=== PATIENT | male | born 1945 | race Caucasian/White ===

== ENCOUNTER 2016-12-21 15:17 | Inpatient (IN) | payer OTHER, MEDICARE ==
[~2016-12-21] VITALS: Ht 175.3 cm; Wt 102.4 kg
[2016-12-21 16:31] VITALS: BP 139/57
[2016-12-21] MEDS ORDERED: CARDIZEM 90 MG90 MG PO (16:39)
[2016-12-21] MEDS ORDERED: PEPCID AC20 MG PO (16:40)
[2016-12-21] MEDS ORDERED: GLIMEPIRIDE4 MG PO (16:41)
[2016-12-21] MEDS ORDERED: MS CONTIN30 MG PO (16:43)
[2016-12-21] MEDS ORDERED: HYDROCODONE-APA1 TAB PO (16:45)
[2016-12-21] MEDS ORDERED: PROZAC40 MG PO (16:46)
[2016-12-21] MEDS ORDERED: NEURONTIN800 MG PO (16:47)
[2016-12-21] MEDS ORDERED: DESERYL100 MG PO (16:48)
[2016-12-21] MEDS ORDERED: LIPITOR40 MG PO (16:48)
[2016-12-21] MEDS ORDERED: HYDRALAZINE HCL25 MG PO (16:50)
[2016-12-21] MEDS ORDERED: COREG25 MG PO (16:50)
[2016-12-21] MEDS ORDERED: LEVAQUIN250 MG PO (16:52)
[2016-12-21] MEDS ORDERED: ZESTRIL20 MG PO (16:55)
[2016-12-21] MEDS ORDERED: JANUVIA25 MG PO (16:56)
[2016-12-21] MEDS ORDERED: BAYER CHEWABLE81 MG PO (16:57)
[2016-12-21] MEDS ORDERED: SYMBICORT 16010.2 GM INH (16:58)
[2016-12-21] MEDS ORDERED: NITROMIST8.5 GM SL (17:01)
[2016-12-21] MEDS ORDERED: RESTORIL15 MG PO (17:01)
[2016-12-21] MEDS ORDERED: PROVENTIL HFA6.7 GM INH (17:02)
--- NOTE | 2016-12-21 19:00 | NUR ---
PATIENT IN BED, AT BEDSIDE. TOLD HIM I WILL RETURN TO SEE HIM AFTER RECEIVING SHIFT REPORT.
--- NOTE | 2016-12-21 19:19 | NUR ---
RESTING QUIETLY IN BED. CALL LIGHT IN REACH
[2016-12-21 20:07] VITALS: BP 139/57
--- NOTE | 2016-12-21 20:10 | NUR ---
ASSESSMENT COMPLETE. PATIENT SIGNED ADMISSION DOCUMENTS. TOLD HIM I PUSHPA RETURN LATER WITH HIS SCHEDULED BEDTIME MEDS. GAVE HIM 240ML CHOCOLATE ENSURE HE ATE ONLY 10% OF HIS DINNER.
--- NOTE | 2016-12-21 21:50 | NUR ---
HS MEDS GIVEN TO PATIENT. FSBS 199. PATIENT DOES NOT HAVE SLIDING SCALE ORDERS. C/O PAIN LEVEL OF 7/10 IN BILAT LE'S DUE TO NEUROPATHY. RECEIVED SCHEDULED MS CONTIN AND NORCO PO.
--- NOTE | 2016-12-22 00:10 | NUR ---
RESTING IN BED ON LEFT SIDE, EYES CLOSED. APPEARS COMFORTABLE.
--- NOTE | 2016-12-22 01:50 | NUR ---
PATIENT AWAKE. EMPTIED 250ML YELLOW URINE FROM BEDSIDE URINAL. DENIES FURTHER NEEDS.
--- NOTE | 2016-12-22 04:15 | NUR ---
IN BED, EYES CLOSED. RESPIRATIONS UNLABORED.
--- NOTE | 2016-12-22 06:15 | NUR ---
FSBS 176. PATIENT DENIES CURRENT NEEDS. REPOSITIONED HIM HIGHER UP IN BED FOR COMFORT.
[2016-12-22 07:10] LABS: INR 1.13 (0.85-1.17); PROTIME 14.4 SECONDS (11.6-15.0)
--- NOTE | 2016-12-22 07:37 | NUR ---
SITTING UP IN BED EATING BREAKFAST. DENIES ANY NEEDS. ALERT AND ORIENTED X3. CALL LIGHT IN REACH. WILL CONTINUE TO MONITOR.
[2016-12-22 08:50] VITALS: BP 136/55
--- NOTE | 2016-12-22 09:45 | NUR ---
IN GYM WITH OCCUPATIONAL THERAPY. TOLERATING WELL.
--- NOTE | 2016-12-22 15:27 | NUR ---
SITTING UP IN BED WATCHING TV, NAD NOTED. DENIES ANY NEEDS OR PAIN AT THIS TIME. CALL LIGHT IN REACH. WILL CONTINUE TO MONITOR
--- NOTE | 2016-12-22 17:35 | NUR ---
SITTING UP IN BED EATING DINNER AND VISITING WITH ROOMMATE. CALL LIGHT IN REACH. WILL CONTINUE TO MONITOR.
--- NOTE | 2016-12-22 19:00 | NUR ---
SITTING UP ON RIGHT SIDE OF BED. DENIES NEEDS.
--- NOTE | 2016-12-22 20:35 | NUR ---
IN BED, DOZING. PREPARING TO LEAVE FOR HOME. EXPRESSED SHE WANTS PATIENT TO HAVE PRN RESTORIL TONIGHT.
[2016-12-22 22:10] VITALS: BP 106/79
--- NOTE | 2016-12-22 22:10 | NUR ---
TOOK ALMOST 5 MINUTES OF SHAKING PATIENT'S SHOULDER AND CALLING HIS NAME UNTIL HE WAS FINALLY ABLE TO KEEP HIS EYES OPEN AND BECOME AWARE OF HIS SURROUNDINGS. ASSESSMENT AND VS THEN COMPLETED. FSBS 64. GAVE PATIENT 8 OZS ORANGE JUICE AND 3 DA SQUARES. PATIENT HAS BEEN EATING POORLY SINCE ADMISSION YESTERDAY AND DAY SHIFT REPORTED A BLOOD SUGAR OF 65 @ 1630. WILL NOT EAT MORE THEN THE CRACKERS PROVIDED AND HAD TO BE REPEATEDLY CUED TO DRINK ALL OF THE JUICE AND EAT HIS DA CRACKERS. HS IS ORIENTED X4. AND IS NOW FULLY AWAKE AND ALERT.
--- NOTE | 2016-12-23 00:35 | NUR ---
RESTING IN BED, EYES CLOSED. HOB UP 45 DEGREES. NO APPARENT DISTRESS.
--- NOTE | 2016-12-23 01:00 | NUR ---
PATIENT LETHARGIC AND DIFFICULT TO AWAKEN. FSBS 81. WILL RECHECK AT 0300 AND TREAT NECESSARY AT THAT TIME.
--- NOTE | 2016-12-23 02:10 | NUR ---
RESTING QUIETLY IN BED, EYES CLOSED.
--- NOTE | 2016-12-23 03:46 | NUR ---
RECHECK BLOOD SUGAR IS 60. PATIENT MORE RESPONSIVE TO TOUCH, BUT STILL NOT AROUSABLE ENOUGH TO EAT A SNACK WITHOUT CONSTANT CUEING AND SUPERVISION TO KEEP HIM ON TASK. GAVE PATIENT GLUCAGON 1MG IM IN RIGHT DELTOID.
--- NOTE | 2016-12-23 06:00 | NUR ---
PATIENT AWAKENED EASILY. FSBS NOW 124. DENIES NEEDS. STILL SLEEPY, BUT NOT LETHARGIC.
[2016-12-23 06:55] LABS: BASOPHILS 0.1 % (0-2); HEMATOCRIT 32.9 % (42.0-54.0); HEMOGLOBIN 10.5 g/dL (13.5-17.5); IMMATURE GRANULOCYTES 0.7 % (0-5); MCH 29.5 pg (26.0-34.0); MCHC 31.9 g/dL (31.0-37.0); MCV 92.4 fL (80.0-100.0); MEAN PLATELET VOLUME 9.7 fL (7.4-10.4); MONOCYTES 8.3 % (2-11); NEUTROPHILS 81.9 % (40-80); PLATELET COUNT 276 10x3/uL (130-400); RBC 3.56 10x6/uL (4.20-6.10); WBC 16.7 10x3/uL (4.8-10.8)
[2016-12-23 06:56] LABS: ANION GAP 10.8 mmol/L (8-16); CALCIUM 8.3 mg/dL (8.5-10.1); CARBON DIOXIDE 27.2 mmol/L (21.0-32.0)
--- NOTE | 2016-12-23 08:00 | NUR ---
SHIFT ASSMT COMPLETED.CL IN REACH.
[2016-12-23 08:09] VITALS: BP 93/46
[2016-12-23 10:27] VITALS: Ht 175.3 cm; Wt 102.4 kg
--- NOTE | 2016-12-23 12:00 | NUR ---
EATING LUNCH.DENIES NEEDS.
[2016-12-23 19:00] VITALS: BP 94/54
--- NOTE | 2016-12-23 19:40 | NUR ---
PT. SITTING UP IN W/C WATCHING TV. ASSESSMENT COMPLETED. NO VOICED NEEDS. CALL LIGHT WITHIN REACH.
--- NOTE | 2016-12-23 23:25 | NUR ---
PT. IN BED LYING ON HIS BACK WITH HOB SLIGHTLY ELEVATED. EYES CLOSED AND RESP. DEEP AND LOUD. CALL LIGHT WITHIN REACH.
--- NOTE | 2016-12-24 03:20 | NUR ---
PT. IN BED WITH HOB UP FOR COMFORT WITH EYES CLOSED AND RESP. DEEP AND EVEN. CALL LIGHT WITHIN REACH.
--- NOTE | 2016-12-24 06:14 | NUR ---
PT. IN BED WITH HOB SLIGHTLY ELEVATED FOR COMFORT. EYES CLOSED AND RESP. DEEP, EVEN AND LOUD. CALL LIGHT WITHIN REACH.
--- NOTE | 2016-12-24 08:00 | NUR ---
SHIFT ASSMT COMPLETED.SLEEPY AND CONFUSED THIS AM.UP OOB TO WC.O2 ON AT 2L/NC.BREAKFAST GIVEN.
[2016-12-24 08:36] VITALS: BP 94/38
--- NOTE | 2016-12-24 12:00 | NUR ---
SITTING UP FOR MEAL AT BEDSIDE.
--- NOTE | 2016-12-24 14:00 | NUR ---
RESTING IN BED AFTER FALLING ASLEEP IN WC.REMAINS CONFUSED TO TIME AND PLACE.
--- NOTE | 2016-12-24 16:00 | NUR ---
UP IN WC IN THERAPY.
--- NOTE | 2016-12-24 19:59 | NUR ---
DR. CARDONA RETURNED CALL GAVE REPORT OF CHANGE IN CONDITION, LABS ORDERED.
[2016-12-24 20:09] VITALS: BP 95/42
[2016-12-24 20:23] LABS: BASOPHILS 0.1 % (0-2); EOSINOPHILS 0.4 % (0-7); HEMATOCRIT 31.5 % (42.0-54.0); HEMOGLOBIN 9.9 g/dL (13.5-17.5); IMMATURE GRANULOCYTES 0.4 % (0-5); LYMPHOCYTES 6.8 % (15-50); MCH 28.9 pg (26.0-34.0); MCHC 31.4 g/dL (31.0-37.0); MCV 92.1 fL (80.0-100.0); MEAN PLATELET VOLUME 9.1 fL (7.4-10.4); MONOCYTES 8.1 % (2-11); NEUTROPHILS 84.2 % (40-80); PLATELET COUNT 250 10x3/uL (130-400); RBC 3.42 10x6/uL (4.20-6.10); RDW 14.8 % (11.5-14.5); WBC 13.9 10x3/uL (4.8-10.8)
--- NOTE | 2016-12-24 20:42 | NUR ---
CORRECTION TO ASSESSMENT - RESOLVING BRUISES ON LOWER ABDOMEN. 68 CONTROLLED AFIB PER TELEMETRY.
[2016-12-24 20:54] LABS: ANION GAP 14.4 mmol/L (8-16); CALCIUM 8.3 mg/dL (8.5-10.1); CARBON DIOXIDE 24.4 mmol/L (21.0-32.0)
[2016-12-24 21:08] LABS: CREATININE - SERUM 4.6 mg/dL (0.6-1.3); POTASSIUM - SERUM 4.8 mmol/L (3.5-5.1)
--- NOTE | 2016-12-24 21:39 | NUR ---
PT HR AND RHYTHM 60 CONTROLLED AFIB
--- NOTE | 2016-12-24 21:50 | NUR ---
LAB RESULTS CALLED TO DR. CARDONA WITH CONCERN OF PATIENT INCREASED LETHARGY. STATES HE WILL BE UP TO LOOK AT PATIENT.
--- NOTE | 2016-12-24 22:00 | NUR ---
STIMULATED PT TO WAKE UP, PT WAS AUDIBLE SNORING, PT OPENED EYES, MUMBLED, WILL HOLD HS MEDS UNTIL PHYSICIAN ARRIVES.
--- NOTE | 2016-12-24 22:30 | NUR ---
PHYSICIAN PRESENT, SEEN PATIENT, ORDERS OBTAINED, WILL HOLD HS MEDS FOR [facility].
--- NOTE | 2016-12-24 23:52 | NUR ---
CONTACTED ICU TO ASSIST WITH STARTING IV. IV FLUIDS ON HOLD R/T INABILITY TO START IV. ATTEMPTED BY SELF X2, AND OTHER NURSING STAFF X 3.
--- NOTE | 2016-12-25 04:26 | NUR ---
INCONTINENCE CHECK, PT NEEDED EXTRA STIM TO WAKE UP, PT STATED HE HAD TO VOID, HOWEVER PT WASN'T AWARE OF SELF VOIDING IN URINAL. URINE CONCENTRATED, OUTPUT 250. REPOSITIONED, PT UNABLE TO ROLL TO SIDE REQUIRED MAX ASSIST. IV INFUSING.
[2016-12-25 06:55] LABS: BASOPHILS 0.1 % (0-2); EOSINOPHILS 0.8 % (0-7); HEMOGLOBIN 9.5 g/dL (13.5-17.5); IMMATURE GRANULOCYTES 0.4 % (0-5); LYMPHOCYTES 8.3 % (15-50); MCH 28.8 pg (26.0-34.0); MCHC 31.7 g/dL (31.0-37.0); MCV 90.9 fL (80.0-100.0); MEAN PLATELET VOLUME 8.9 fL (7.4-10.4); MONOCYTES 8.5 % (2-11); NEUTROPHILS 81.9 % (40-80); PLATELET COUNT 238 10x3/uL (130-400); RDW 14.8 % (11.5-14.5); WBC 11.3 10x3/uL (4.8-10.8)
--- NOTE | 2016-12-25 07:01 | NUR ---
PT RESTING EYES CLOSED, DIFFICULT TO ARROUSE, WILL OPEN EYES AND FOLLOW COMMANDS. UE AND LE EDEMATOUS.
[2016-12-25 07:12] LABS: ANION GAP 13.8 mmol/L (8-16); CALCIUM 8.1 mg/dL (8.5-10.1); CARBON DIOXIDE 23.7 mmol/L (21.0-32.0); CREATININE - SERUM 4.2 mg/dL (0.6-1.3); POTASSIUM - SERUM 4.5 mmol/L (3.5-5.1)
[2016-12-25 08:52] VITALS: BP 172/46
--- NOTE | 2016-12-25 10:06 | NUR ---
RESTING QUIETLY IN BED. DENIES PAIN. CALL LIGHT IN REACH
--- NOTE | 2016-12-25 13:00 | NUR ---
Nutrition Follow Up: Pt reported that he felt hungry and his appetite was good. Family member stated that he had been eating very well. Pt is eating 72% meal avg on a diabetic diet. Wt stable. Labs reviewed. Meds noted including Januvia. Rec continue current diet. RD following.
--- NOTE | 2016-12-25 18:41 | NUR ---
HAS BEEN ASLEEP FOR TWO HOURS. SLEPT THROUGH SUPPER. WILL OPEN EYES TO PAINFUL STEMULI. NO AFTERNOON MEDS GIVEN TO PT DUE TO NOT WAKING UP.
[2016-12-25 19:06] VITALS: BP 136/44
--- NOTE | 2016-12-25 19:45 | NUR ---
PT SITTING ON SIDE OF BED, APPEARING TO LOOK A BIT DISHEVELED AND DISREGARDING BED ALARM SIGNAL. PT RESPOSITIONED AND FOOD TRAY SET UP, PT INITATED THE EATING PROCESS.
[2016-12-26 01:09] VITALS: BP 107/87
--- NOTE | 2016-12-26 01:28 | NUR ---
PT AWAKE, ALERT, STATED HE NEEDED TO VOID, PT THOUGHT HE HAD VOIDED IN URINAL, PT WASN'T ABLE TO INITIATE A STREAM, PT BRIEF WAS SATURATED WITH URINE. PROVIDED INCONTINENCE CARE.
[2016-12-26 06:07] LABS: BASOPHILS 0.2 % (0-2); EOSINOPHILS 1.1 % (0-7); HEMATOCRIT 27.3 % (42.0-54.0); HEMOGLOBIN 8.9 g/dL (13.5-17.5); IMMATURE GRANULOCYTES 0.4 % (0-5); MCHC 32.6 g/dL (31.0-37.0); MEAN PLATELET VOLUME 9.2 fL (7.4-10.4); MONOCYTES 9.5 % (2-11); NEUTROPHILS 80.8 % (40-80); PLATELET COUNT 274 10x3/uL (130-400); RBC 3.07 10x6/uL (4.20-6.10); RDW 14.7 % (11.5-14.5)
[2016-12-26 06:16] LABS: MCV 88.9 fL (80.0-100.0)
[2016-12-26 06:31] LABS: ANION GAP 13.6 mmol/L (8-16); CARBON DIOXIDE 22.7 mmol/L (21.0-32.0); CREATININE - SERUM 3.6 mg/dL (0.6-1.3); POTASSIUM - SERUM 4.3 mmol/L (3.5-5.1)
--- NOTE | 2016-12-26 07:45 | NUR ---
SITTING UP IN BED EYES CLOSED RESTING. O2 SAT 84 ON 2L. TURNED UP TO 3L O2 SAT 91%. BILAT UPPER LOBES CRACKLES. BILAT LOWER LOBES DIMINISHED. SET PT UP FOR BREAKFAST NOTICED PT HAVING DIFFICULTY FEEDING HIMSELF. ALERT AND ORIENTED TO PERSON. REORIENTED TO TIME PLACE AND SITUATION.
--- NOTE | 2016-12-26 07:47 | NUR ---
RESTING QUIETLY IN BED. EYES CLOSED. CALL LIGHT IN REACH
[2016-12-26 08:00] VITALS: BP 127/64
--- NOTE | 2016-12-26 08:30 | NUR ---
PERFORMED IN AND OUT CATHETER FOR UA & CX PER ORDERS. URINE RESIDUAL OF 400CC. DELIVERED COLLECTION TO LAB.
[2016-12-26 09:37] LABS: APPEARANCE CLEAR (CLEAR); BILIRUBIN NEGATIVE (NEGATIVE); COLOR YELLOW (YELLOW); GLUCOSE NEGATIVE (NEGATIVE); KETONE NEGATIVE (NEGATIVE); LEUKOCYTE ESTERASE NEGATIVE (NEGATIVE); NITRITE NEGATIVE (NEGATIVE); PROTEIN NEGATIVE (NEGATIVE); SPECIFIC GRAVITY 1.015 (1.005-1.020); UROBILINOGEN NORMAL (NORMAL)
[2016-12-26 09:45] LABS: BACTERIA FEW /hpf (NONE SEEN); CALCIUM OXALATE CRYSTALS OCC /hpf (NONE SEEN); EPITHELIAL CELLS RARE /hpf (0-5); HYALINE CAST RARE /lpf (NONE SEEN); RED CELLS - URINE OCC /hpf (0-5); WHITE CELLS - URINE OCC /hpf (0-5)
--- NOTE | 2016-12-26 10:10 | NUR ---
CALLED AND SPOKE WITH CARLEY HILL IN REGARDS TO PT CHANGE IN STATUS INCREASE IN O2 TO 4L, CHANGE IN MENTAL STATUS, WET NON-PRODUCTIVE COUGH, AND SOB. CARLEY INSTRUCTED TO ORDER CXR TO SEE IF THERE IS A CHANGE.
--- NOTE | 2016-12-26 10:52 | NUR ---
IN GYM WITH OCCUPATIONAL THERAPY (ANGELA). HAVING DIFFICULTY WITH GRASPING ON TO THINGS AND BEING ABLE TO HOLD ON TO THEM. VERY CONFUSED O2 SAT 93% ON 4L NC.
[2016-12-26 10:56] VITALS: BP 132/66
--- NOTE | 2016-12-26 11:30 | NUR ---
IN GYM WITH PHYSICAL THERAPY (RASHAD). TOLERATING WELL.
--- NOTE | 2016-12-26 12:30 | NUR ---
SITTING UP IN WHEELCHAIR RESTING ALERT AND ORIENTED TO PERSON. REORIENTED TO TIME AND PLACE. DENIES ANY PAIN. ASSISTED TO RESTROOM AND CHANGED BRIEF. WILL CONTINUE TO MONITOR.
--- NOTE | 2016-12-26 15:00 | NUR ---
SITTING UP IN WHEELCHAIR NO S/S OF RESPIRATORY DISTRESS. ASSISTED TO RESTROOM AND CHANGED BRIEF. ASSISTED BACK TO ROOM. CALL LIGHT IN REACH. WILL CONTINUE TO MONITOR.
--- NOTE | 2016-12-26 19:30 | NUR ---
PT RESTING QUIETLY, NO S/S OF ACUTE DISTRESS, RESPIRATIONS REGULAR AND UNLABORED, PT WAKES WITH VERBAL STIMULATION. PT STATES HE IS TIRED.
[2016-12-26 20:20] VITALS: BP 157/81
--- NOTE | 2016-12-26 22:15 | NUR ---
PT USED CALL LIGHT TO REQUEST INFORMATION TO WHAT WAS GOING ON. PT KNEW HE WAS IN HOSPITAL, BUT NOT WHY. PT SEEMED TO COMPREHEND INITIALLY REASON FOR HOSPITALIZATION, PT HAS SHORT TERM MEMORY DEFICIT.
--- NOTE | 2016-12-26 23:30 | NUR ---
PT RESTING QUIETLY, RESPIRATIONS REGULAR AND UNLABORED, NO S/S OF ACUTE DISTRESS. RETURNED CALL TO SPOUSE PER REQUEST, PASSWORD VERIFIED.
--- NOTE | 2016-12-27 03:20 | NUR ---
PT RESTING QUIETLY, NO S/S OF ACUTE DISTRESS. RESPIRATIONS REGULAR AND UNLABORED.
[2016-12-27 06:46] LABS: BASOPHILS 0.1 % (0-2); EOSINOPHILS 0.8 % (0-7); HEMATOCRIT 29.4 % (42.0-54.0); HEMOGLOBIN 9.5 g/dL (13.5-17.5); IMMATURE GRANULOCYTES 0.5 % (0-5); LYMPHOCYTES 7.3 % (15-50); MCH 28.8 pg (26.0-34.0); MCHC 32.3 g/dL (31.0-37.0); MCV 89.1 fL (80.0-100.0); MEAN PLATELET VOLUME 8.8 fL (7.4-10.4); MONOCYTES 8.7 % (2-11); NEUTROPHILS 82.6 % (40-80); PLATELET COUNT 269 10x3/uL (130-400); RDW 14.6 % (11.5-14.5); WBC 9.6 10x3/uL (4.8-10.8)
[2016-12-27 07:06] LABS: ANION GAP 14.2 mmol/L (8-16); CALCIUM 8.5 mg/dL (8.5-10.1); CARBON DIOXIDE 24.4 mmol/L (21.0-32.0); CREATININE - SERUM 2.7 mg/dL (0.6-1.3); POTASSIUM - SERUM 4.6 mmol/L (3.5-5.1)
--- NOTE | 2016-12-27 07:20 | NUR ---
SITTING UP IN BED LOOKING AT TV. NO RESPIRATORY DISTRESS NOTED. CALL LIGHT IN REACH. ALERT AND ORIENTED TO PERSON, PLACE AND TIME. WILL CONTINUE TO MONITOR
[2016-12-27 08:00] VITALS: BP 133/89
--- NOTE | 2016-12-27 08:21 | NUR ---
SITTING UP IN BED EATING BREAKFAST. CALL LIGHT IN REACH.
--- NOTE | 2016-12-27 09:14 | NUR ---
LYING IN BED EYES CLOSED RESTING QUIETLY. BRIEF CLEAN AND DRY. CALL LIGHT IN REACH
--- NOTE | 2016-12-27 10:29 | NUR ---
ASSISTED TO RESTROOM AND BACK TO ROOM WITH MIN ASSIST. PT SEEMS LESS CONFUSED TODAY AND IS COMMUNICATING WITH STAFF MORE TODAY. WILL CONTINUE TO MONITOR. CALL LIGHT IN REACH. CHAIR ALARM ON.
--- NOTE | 2016-12-27 12:13 | NUR ---
SITTING UP IN CHAIR EATING LUNCH. DENIES ANY PAIN OR ANY NEEDS. CALL LIGHT IN REACH. WILL CONTINUE TO MONITOR.
--- NOTE | 2016-12-27 15:10 | NUR ---
SITTING UP IN BED VISITING FAMILY. DENIES ANY NEEDS. CALL LIGHT IN REACH
[2016-12-27 15:24] VITALS: BP 133/64
--- NOTE | 2016-12-27 17:23 | NUR ---
LYING IN BED EYES CLOSED RESTING. EASILY AROUSED WITH VERBAL STIMULI. BRIEF CLEAN AND DRY. CALL LIGHT IN REACH
--- NOTE | 2016-12-27 19:30 | NUR ---
PT SITTING IN W/C, NO S/S OF ACUTE DISTRESS. ASISTED PT WITH MEAL SETUP AND PT IS EATING. PT APPEARS TO BE COHERENT AND AWARE OF SURROUNDINGS, SITUATION AND TIME. PT DENIES PAIN.
[2016-12-27 19:35] VITALS: BP 101/55
--- NOTE | 2016-12-27 21:30 | NUR ---
ASSISTED PT BACK TO BED, PT ABLE TO PROCESS SEQUENCING TO TRANSFER FROM BED TO W/C. PT ALERT & ORIENTED. NO S/S OF ACUTE DISTRESS.
--- NOTE | 2016-12-28 00:10 | NUR ---
PT RESTING QUIETLY IN BED, NO S/S OF ACUTE DISTRESS. RESPIRATINS REGUALR AND UNLABORED.
--- NOTE | 2016-12-28 01:18 | NUR ---
PT AWAKE, WAS ABLE TO EXPELL MOD AMOUNT OF PHLEGM, CLEAR FROM THROAT, PT THEN REQUESTED ICE CREAM, PT WAS ABLE TO REPOSITION SELF IN BED AND USED URINAL SUCCESSFULLY. PT ALSO VERBALIZES AWARENESS WITH SPOUSE BEING IN [place]. PLEASANT AND CONVERSIVE.
[2016-12-28 06:22] LABS: BASOPHILS 0.1 % (0-2); EOSINOPHILS 0.8 % (0-7); HEMATOCRIT 29.8 % (42.0-54.0); HEMOGLOBIN 9.6 g/dL (13.5-17.5); IMMATURE GRANULOCYTES 0.5 % (0-5); LYMPHOCYTES 5.1 % (15-50); MCH 28.8 pg (26.0-34.0); MCHC 32.2 g/dL (31.0-37.0); MCV 89.5 fL (80.0-100.0); MEAN PLATELET VOLUME 9.1 fL (7.4-10.4); MONOCYTES 9.7 % (2-11); NEUTROPHILS 83.8 % (40-80); PLATELET COUNT 315 10x3/uL (130-400); RBC 3.33 10x6/uL (4.20-6.10); RDW 14.7 % (11.5-14.5)
[2016-12-28 06:39] LABS: CALCIUM 8.4 mg/dL (8.5-10.1); CARBON DIOXIDE 27.4 mmol/L (21.0-32.0); CREATININE - SERUM 2.3 mg/dL (0.6-1.3); POTASSIUM - SERUM 4.4 mmol/L (3.5-5.1)
--- NOTE | 2016-12-28 06:57 | NUR ---
PT RESTING QUIETLY, NO S/S OF ACUTE DISTRESS.
[2016-12-28 08:38] VITALS: BP 179/81
--- NOTE | 2016-12-28 11:00 | NUR ---
CLINICAL UPDATES FAXED TO JOSELITO AT [facility] , AUTH. # [id number] WITH CONFORMATION RECIEVED
--- NOTE | 2016-12-28 12:01 | NUR ---
SITTING IN ROOM EATING LUNCH. FEEDS SELF. STILL WEARING OXYGEN. IS CONFUSED AND NEEDS SUPERVISION FOR SAFETY. IS INCONT OF URINE AT TIMES.
--- NOTE | 2016-12-28 19:30 | NUR ---
SITTING UP IN WHEELCHAIR, DENIES NEEDS.
[2016-12-28 20:34] VITALS: BP 112/74
--- NOTE | 2016-12-28 21:52 | NUR ---
ASSISTED PT TO BATHROOM AND BACK TO BED.
--- NOTE | 2016-12-29 01:21 | NUR ---
INCONTINENCE, CLEAN AND CHANGE CLOTHES AND LINEN.
--- NOTE | 2016-12-29 01:45 | NUR ---
PATIENT IN BED, AWAKE. WATCHING TV.
[2016-12-29 05:10] LABS: BASOPHILS 0.2 % (0-2); EOSINOPHILS 0.9 % (0-7); HEMATOCRIT 29.2 % (42.0-54.0); HEMOGLOBIN 9.4 g/dL (13.5-17.5); IMMATURE GRANULOCYTES 0.3 % (0-5); LYMPHOCYTES 7.1 % (15-50); MCH 28.8 pg (26.0-34.0); MCHC 32.2 g/dL (31.0-37.0); MCV 89.6 fL (80.0-100.0); MONOCYTES 8.5 % (2-11); PLATELET COUNT 307 10x3/uL (130-400); RBC 3.26 10x6/uL (4.20-6.10); RDW 14.6 % (11.5-14.5); WBC 12.1 10x3/uL (4.8-10.8)
[2016-12-29 05:26] LABS: ANION GAP 8.4 mmol/L (8-16); CALCIUM 8.3 mg/dL (8.5-10.1); CARBON DIOXIDE 30.8 mmol/L (21.0-32.0); CREATININE - SERUM 1.9 mg/dL (0.6-1.3); POTASSIUM - SERUM 4.2 mmol/L (3.5-5.1)
--- NOTE | 2016-12-29 06:40 | NUR ---
Nutrition Follow Up: Pt is eating 46% meal avg on a diabetic diet. +BM 12/28/16. Meds and labs noted. Rec continue current diet. RD following.
--- NOTE | 2016-12-29 08:00 | NUR ---
AWAKE AND ASSISTED OOB TO WC.BREAKFAST GIVEN.MEAL SET-UP GIVEN.
[2016-12-29 09:26] VITALS: BP 176/67
[2016-12-29 19:05] VITALS: BP 167/66
--- NOTE | 2016-12-29 19:35 | NUR ---
PM ROUNDS MADE, PT RESTING WITH EYES CLOSED, RESP QUIET, NO DISTRESS NOTED, LEFT UNDISTURBED AT THIS TIME
--- NOTE | 2016-12-29 20:21 | NUR ---
PT RESTING WITH EYES CLOSED, RESP QUIET, NO DISTRESS NOTED, LEFT UNDISTURBED AT THIS TIME
--- NOTE | 2016-12-29 20:30 | NUR ---
PT RESTING WITH EYES CLOSED, RESP QUIET, NO DISTRESS NOTED, LEFT UNDISTURBED AT THIS TIME
--- NOTE | 2016-12-29 21:30 | NUR ---
PT AWAKE, BALL SORTER IN ROOM, JUST ASSISTED PT WITH TOILETING, ADM 2100 MEDS PO PER MD ORDERS, SEE EMAR, PT REQUESTS SOMETHING TO HELP HIM SLEEP, INFORMED PT I WILL SEE WHAT IS ORDERED AND BRING IT IN, CAN GOING OVER MENU WITH PT
--- NOTE | 2016-12-29 21:42 | NUR ---
ADM RESTORIL PO PER MD ORDERS, SEE EMAR, PT DENIES FURTHER NEEDS
--- NOTE | 2016-12-29 22:38 | NUR ---
PT RESTING WITH EYES CLOSED, RESP QUIET, NO DISTRESS NOTED, LEFT UNDISTURBED AT THIS TIME
[2016-12-30 00:18] VITALS: BP 156/68
--- NOTE | 2016-12-30 00:18 | NUR ---
UPON ENTERING ROOM, PT IS SITTING ON SIDE OF BED, PT USED URINAL, VOIDED 100 MLS OF DARK YELLOW URINE, EMPTIED, PT NOTED TO HAVE A SORE SLIGHTLY BLEEDING, PT CLEANED UP, BANDAID APPLIED, PT BACK TO BED, POSITOINED SELF, VS OBTAINED, PT DENIES NEEDS OR PAIN, SIDE RAILS X 2, CALL LIGHT IN REACH, BED IN LOW POSITION, BED ALARM ON AND WORKING PROPERLY
--- NOTE | 2016-12-30 01:45 | NUR ---
PT RESTING WITH EYES CLOSED, RESP QUIET, NO DISTRESS NOTED, LEFT UNDISTURBED AT THIS TIME
--- NOTE | 2016-12-30 03:00 | NUR ---
PT FINISHING AND SHIPPING SUPERVISOR LIGHT, PT DROPPED URINAL UNDER BED, URINAL HANDED TO PT, PT INST TO USE CALL LIGHT WHEN FINISHED VOIDING, PT VERBALIZES UNDERSTANDING
--- NOTE | 2016-12-30 03:10 | NUR ---
VINAYAK LOPEZ RN REPORTS TO ME THAT PT VOIDED 150 MLS BY SELF WITH NO DIFFICULTY
[2016-12-30 05:15] VITALS: BP 151/75
--- NOTE | 2016-12-30 05:15 | NUR ---
PT RESTING WITH EYES CLOSED, AROUSES TO SOFT VERBAL STIMULATION, VS AND WEIGHT OBTAINED, PT DENIES NEEDS OR PAIN AT THIS TIME
--- NOTE | 2016-12-30 06:00 | NUR ---
PT UP TO BR VIA WC PER [place] RN, PT HAS DIARRHEA, PT HAD LARGE LOOSE STOOL, THIS RN AND AJ AVILA CLEANED PT UP, APPLIED FRESH DAULT BRIEFS, PINK PAD AND BLUE CHUX CHANGED, PT BACK TO BED, DENIES FURTHER NEEDS, BED IN LOW POSITION, SIDE RAILS X 2, CALL LIGHT IN REACH, BED ALARM ON AND WORKING PROPERLY
--- NOTE | 2016-12-30 07:00 | NUR ---
PT RESTING WITH EYES CLOSED, AROUSES TO VERBAL STIMULATION, FSBS OBTAINED, RESP TO ROOM FOR TREATMENT, PT DENIES NEEDS
--- NOTE | 2016-12-30 07:10 | NUR ---
SHIFT REPORT TO DAY SHIFT
--- NOTE | 2016-12-30 07:45 | NUR ---
LYING IN BED EYES CLOSED RESTING QUIETLY. OXYGEN ON 3.5L VIA NASAL CANULA, NO S/SX OF RESPIRATORY DISTRESS. EASILY AROUSED WITH VERBAL STIMULI. CALL LIGHT IN REACH. WILL CONTINUE TO MONITOR.
[2016-12-30 08:00] VITALS: BP 149/84
--- NOTE | 2016-12-30 09:20 | NUR ---
SITTING UP IN BED WATCHING TV. DENIES ANY PAIN OR DISCOMFORT. CALL LIGHT IN REACH. WILL CONTINUE TO MONITOR
--- NOTE | 2016-12-30 10:20 | NUR ---
RESITED IV FROM RIGHT SHOULDER TO RIGHT WRIST WITH 22G, 1 ATTEMPT. RIGHT SHOULDER IV CATHETER INTACT, AREA RED AND TENDER BUT IS NOT WARM TO TOUCH. ASSISTED TO RESTROOM AND ASSISTED WITH GETTING DRESSED. WILL CONTINUE TO MONITOR
--- NOTE | 2016-12-30 11:19 | NUR ---
IN GYM WITH OCCUPATIONAL THERAPY.
[2016-12-30 12:00] VITALS: BP 135/57
--- NOTE | 2016-12-30 14:09 | NUR ---
SITTING IN WHEELCHAIR VISITING WITH . DENIES ANY CONCERNS. CALL LIGHT IN REACH.
--- NOTE | 2016-12-30 16:28 | NUR ---
IN GYM WITH PHYSICAL THERAPY.
--- NOTE | 2016-12-30 17:00 | NUR ---
MIKE PATTON MEETING: SPOUSE ATTENDED MEETING AND SHE WOULD LIKE REFERRAL TO BE MADE TO [facility]. EXPLAINED THE PROCESS OF SENDING REFERRAL TO FACILITY AT THIS TIME SHE FEELS SHE IS UNABLE TO CARE FOR HIM. I ALSO SHARED THAT THE INSURANCE MAY WANT HIM TO DISCHARGE HOME FROM HERE. WILL SEND REFERRAL . PATIENT TENATIVE DISCHARGE DATE IS 01/04/17. WILL CONTIUNE TO FOLLOW WITH PATIENT
[2016-12-30 18:35] VITALS: BP 137/62
--- NOTE | 2016-12-30 19:50 | NUR ---
SIT UP IN BED AND WATCH TV.
[2016-12-31 00:12] VITALS: BP 116/97
--- NOTE | 2016-12-31 03:28 | NUR ---
PT RESTING WITH EYES CLOSED, RESPIRATIONS REGULAR AND UNLABORED, NO S/S OF ACUTE DISTRESS.
--- NOTE | 2016-12-31 04:15 | NUR ---
REST QUIETLY IN BED, EYE CLOSE, BED LOW, CALL LIGHT WITHIN REACH.
[2016-12-31 05:28] LABS: BASOPHILS 0.1 % (0-2); HEMATOCRIT 30.5 % (42.0-54.0); HEMOGLOBIN 9.8 g/dL (13.5-17.5); IMMATURE GRANULOCYTES 0.4 % (0-5); LYMPHOCYTES 6.6 % (15-50); MCH 28.9 pg (26.0-34.0); MCHC 32.1 g/dL (31.0-37.0); MONOCYTES 8.9 % (2-11); PLATELET COUNT 320 10x3/uL (130-400); RBC 3.39 10x6/uL (4.20-6.10); RDW 14.5 % (11.5-14.5); WBC 14.6 10x3/uL (4.8-10.8)
[2016-12-31 05:42] LABS: ANION GAP 8.8 mmol/L (8-16); CALCIUM 8.6 mg/dL (8.5-10.1); CARBON DIOXIDE 31.1 mmol/L (21.0-32.0); CREATININE - SERUM 2.1 mg/dL (0.6-1.3); POTASSIUM - SERUM 3.9 mmol/L (3.5-5.1)
[2016-12-31 06:28] VITALS: BP 158/88
--- NOTE | 2016-12-31 07:21 | NUR ---
SITTING UP ON SIDE OF BED. DENIES ANY PAIN OR CONCERNS. CALL LIGHT IN REACH.
[2016-12-31 12:24] VITALS: BP 139/92
--- NOTE | 2016-12-31 14:03 | NUR ---
LYING IN BED WATCHING TV. AT BEDSIDE. PT STATES "HE IS READY TO GO HOME FOR A COUPLE OF DAYS BEFORE GOING TO [facility]" STATES SHE IS OK WITH THIS DESICION. NO OTHER CONCERNS VOICED AT THIS TIME. CALL LIGHT IN REACH. WILL CONTINUE TO MONITOR
--- NOTE | 2016-12-31 16:13 | NUR ---
SITTING UP IN WHEELCHAIR WATCHING TV, NAD NOTED. CALL LIGHT IN REACH. WILL CONTINUE TO MONITOR.
--- NOTE | 2016-12-31 17:20 | NUR ---
PT SITTING UP IN WC, WAITING FOR DINNER, DENIES NEEDS. BED LOW. CL IN REACH.
[2016-12-31 18:09] VITALS: BP 116/56
--- NOTE | 2016-12-31 18:12 | NUR ---
SITTING UP IN W/C EATING DINNER. DENIES ANY NEEDS. CALL LIGHT IN REACH
--- NOTE | 2016-12-31 19:45 | NUR ---
PT FOUND WALKING TO BATHROOM, GAIT IS UNSTEADY, NEEDS VERBAL REMINDERS TO USE SAFETY PRECAUTIONS AND ADAPTIVE EQUIPMENT.
[2017-01-01 00:20] VITALS: BP 126/46
--- NOTE | 2017-01-01 01:00 | NUR ---
ASSISTED TO BATHROOM, NEEDS VERBAL CUES FOR SAFETY REMINDERS.
[2017-01-01 04:42] VITALS: BP 115/67
--- NOTE | 2017-01-01 06:19 | NUR ---
PT RESTING, NOCTURIA AND INCONTINENT. NO S/S OF ACUTE DISTRESS.
--- NOTE | 2017-01-01 08:00 | NUR ---
SITTING UP IN BED EATING BREAKFAST. CALL LIGHT IN REACH
--- NOTE | 2017-01-01 10:00 | NUR ---
IS ALERT AND ORIENTED X3. SPEECH CLEAR AND S0FT. FOLLOWS COMMANDS AND REQUESTS. HAS SOME INTERMITTENT CONFUSION AT TIMES. DENIES INCREASED SOB. NON PRODUCTIVE COUGH NOTED. STILL WEARING OXYGEN 6L NC. STATES PT WANTS TO GO HOME FOR WEEKEND THEN SHE WILL TAKE HIM TO [facility] ON Wednesday01/04/17. SHE DECLINES HOME HEALTH. DR CARDONA ON FLOOR AND AGREED TO REQUEST TO D/C HIM HOME TODAY AND WILL TAKE TO [place] ON 01/04/17
[2017-01-01] MEDS ORDERED: HYDROCODONE-APA1 TAB PO (10:37)
[2017-01-01] MEDS ORDERED: MS CONTIN30 MG PO (10:37)
--- NOTE | 2017-01-01 11:50 | NUR ---
PATIENT DISCHARGING HOME WITH SPOUSE TODAY AND POSSIBLE GOING INTO [facility] NEXT WEEK. PATIENT HAS O2 AT HOME, DR. BLACKMON 01/15/17 @ 9:40, DR. COOPER 01/08/17 @ 11:20. PATIENT CHOICE FORM FOR SNF AND [facility] FORM SIGNED, EXPLAINED AND FILED IN CHART.
--- NOTE | 2017-01-01 13:34 | NUR ---
INSTRUCTED TO CALL ME IF INSURANCE WILL NOT PERMIT HIM TO GO TO SNF AND I WILL GET HOME HEALTH STARTED.
--- NOTE | 2017-01-01 14:00 | NUR ---
D/C HOME WITH . ALL PERSONAL BELONGINGS PACKED AND SENT WITH PT. WENT OVER D/C INSTRUCTIONS WITH PT'S , RICCO, SHE DENIES ANY QUESTIONS AND DENIES NEEDING ANY MEDS CALLED INTO PHARMACY.
== END 2017-01-01 14:18 | disposition home or self-care (01) | DRG 92 ==
LOC: D.REHAB 15:17
PROVIDERS: Internal Medicine Nephrology; ADMIT Emergency Medicine
DX: G72.89 Other specified myopathies (principal); I13.0 Hypertensive heart and chronic kidney disease with heart failure and stage 1 through stage 4 chronic kidney disease, or unspecified chronic kidney disease; I50.42 Chronic combined systolic (congestive) and diastolic (congestive) heart failure; N17.9 Acute kidney failure, unspecified; J44.9 Chronic obstructive pulmonary disease, unspecified; J45.909 Unspecified asthma, uncomplicated; Z95.1 Presence of aortocoronary bypass graft; R41.0 Disorientation, unspecified; E11.22 Type 2 diabetes mellitus with diabetic chronic kidney disease; N18.9 Chronic kidney disease, unspecified; E11.21 Type 2 diabetes mellitus with diabetic nephropathy; I48.0 Paroxysmal atrial fibrillation